=== PATIENT | female | born 1980 | race Caucasian/White ===

== ENCOUNTER 2018-09-27 06:03 | Inpatient (IN) | payer OTHER ==
[~2018-09-27] VITALS: Ht 157.5 cm; Wt 69.0 kg
[2018-09-27] VITALS (8 sets, daily range): BP systolic 114–142; BP diastolic 70–91
[~2018-09-27 06:03] MED LIST: IBUP200T45 PO; LIDOCAINE 1% MDV 20ML VIAL SQ PRN; LR 1,000 ML IV ONE; ORTH1TAB16 PO; WOME1TAB3 PO
[2018-09-27 06:24] LABS: HEMATOCRIT 41.9 % (36.0-47.0)
[2018-09-27 06:39] LABS: HCG, SERUM QUALITATIVE NEGATIVE (NEGATIVE)
[2018-09-27] MEDS ORDERED: BUPIVACAINE HCL 0.25% 30 ML VIAL As Ordered ONE (07:11)
[2018-09-27] MEDS ORDERED: ROCURONIUM BROMIDE 50 MG/5 ML VIAL As Ordered ONE (07:49)
[2018-09-27] MEDS ORDERED: NEOSTIGMINE 10 MG/10 ML VIAL (J2710) As Ordered ONE (07:49)
[2018-09-27] MEDS ORDERED: PHENYLephrine HCL 500 MCG/5 ML (100MCG/ML) SYRINGE (J2370) As Ordered ONE (07:49)
[2018-09-27] MEDS ORDERED: ONDANSETRON 4MG/2ML VIAL (J2405) As Ordered ONE (07:49)
[2018-09-27] MEDS ORDERED: GLYCOPYRROLATE INJ 0.2 MG/ML 2 ML VIAL As Ordered ONE (07:49)
[2018-09-27] MEDS ORDERED: dexameTHASONE 4 MG/ML 1ML VIAL (J1100) As Ordered ONE (07:49)
[2018-09-27] MEDS ORDERED: MIDAZOLAM INJ 2 MG/2 ML VIAL (J2250) As Ordered ONE (07:49)
[2018-09-27] MEDS ORDERED: PROPOFOL 200 MG/20 ML VIAL As Ordered ONE (07:49)
[2018-09-27] MEDS ORDERED: METOCLOPRAMIDE INJ 10MG/2ML VIAL (J2765) As Ordered ONE (07:49)
[2018-09-27] MEDS ORDERED: LIDOCAINE 2% INJ 100 MG/5 ML SDV (FOR ANES.) As Ordered ONE (07:49)
[2018-09-27] MEDS ORDERED: KETOROLAC 60 MG/2 ML VIAL (J1885) As Ordered ONE (07:49)
[2018-09-27] MEDS ORDERED: fentaNYL 250 MCG/5 ML INJECTION (J3010) As Ordered ONE (07:49)
[2018-09-27] MEDS ORDERED: HYDROmorphone HCL 2 MG/ML 1ML VIAL (J1170) As Ordered ONE (08:07)
[2018-09-27] MEDS ORDERED: FLUORESCEIN 10% (100MG/ML) 5 ML VIAL As Ordered ONE (09:52)
[2018-09-27] MEDS ORDERED: ONDANSETRON 4MG/2ML VIAL (J2405) IV PRN ×2 (10:30→11:00)
[2018-09-27] MEDS ORDERED: PERCOCET 5MG/325MG TAB PO PRN ×3 (10:30→11:00)
[2018-09-27] MEDS ORDERED: KETOROLAC 30 MG/ML VIAL (J1885) IV PRN (10:30)
[2018-09-27] MEDS ORDERED: HYDROMORPHONE HCL 0.5 MG/ 0.5 ML SYRINGE (J1170 PER 1) IV PRN (11:00)
[2018-09-27] MEDS ORDERED: LR 1,000 ML IV SCH (11:00)
[2018-09-27] MEDS ORDERED: fentaNYL 100 MCG/2 ML INJECTION (J3010) IV PRN (11:00)
[2018-09-27] MEDS: LR 1,000 ML IV SCH ×2 (11:40→17:54)
--- NOTE | 2018-09-27 16:53 | IPNPDOC ---
Text Note Date of Service The patient was seen on 09/27/18. NOTE POD 0 Nneka is a 38yo on POD 0 s/p uncomplicated LAVH, bilateral mariza pingectomy and cystoscopy performed for hx of AUB/HMB and dysmenorrhea. She reports pain is well controlled, only 3/10 and just "achy/crampy". She has tolerated clears, hasn't tried food yet. No n/v. Has been out of bed with no dizziness/lightheadedness. Miranda catheter in place draining clear orange-stained urine. No f/c/CP/SOB. Vitals wnl, afebrile General: WDWN, A&O, resting comfortably in bed Abdomen: soft, NTTP, no rebound/guarding, non-distended, 3 trocar sites intact with dermabond overlying and no erythema/induration Extremities: SCDs on and functioning Good urine output Labs: pre-op H/H 14/41.9 Assessment: Nneka is a 38yo doing well on POD 0 s/p uncomplicated LAVH, bilateral salpingectomy and cystoscopy performed for hx of AUB/HMB and dysmenorrhea. Vitals wnl, benign exam. Hemodynamically stable with no e/o infection. Plan: -routine post-op care -vitals q4hr -percocet and toradol for pain -regular diet -CBC in the morning -miranda catheter out tonight at 1800 with 6hr due to void -encourage ambulation and use of IS, SCDs on until fully ambulatory -possible discharge home tomorrow if meeting all milestones Dr. Keila Keith MD VS,Winnie, I+O VSWinnie I+O Laboratory Tests 09/27/18 06:18 Vital Signs Date Time Temp Pulse Resp B/P (MAP) Pulse Ox O2 Delivery O2 Flow Rate FiO2 09/27/18 16:35 98.8 113 16 131/87 (102) 98 09/27/18 10:55 2 Keila Keith MD Sep 27, 2018 16:53
--- NOTE | 2018-09-27 18:13 | RO ---
DATE OF PROCEDURE: 09/27/2018 PREOPERATIVE DIAGNOSIS: Abnormal uterine bleeding / heavy menstrual bleeding, and dysmenorrhea. POSTOPERATIVE DIAGNOSIS: Abnormal uterine bleeding / heavy menstrual bleeding, and dysmenorrhea. MATERIALS FORWARDED TO THE LAB: Uterus, cervix, and bilateral fallopian tubes. OPERATION PERFORMED: Laparoscopic-assisted vaginal hysterectomy with bilateral salpingectomy and cystoscopy. SURGEON: Dr. Keila Keith MD HOME DAY CARE PROVIDER: Dr. Husam Flannery DO Clinical service: Gynecology INFECTION CLASSIFICATION: II. ESTIMATED BLOOD LOSS: 100 mL URINE OUTPUT: 200 mL IV FLUIDS: 1800 mL of lactated Ringer's. INDICATIONS FOR OPERATION: Nneka is a 38-year-old G2, P 2-0-0-2 who has abnormal uterine bleeding / heavy menstrual bleeding and dysmenorrhea despite being on an oral contraceptive pill. We discussed management options and she elected for definitive management with hysterectomy. DESCRIPTION OF FINDINGS: Laparoscopic findings included a normal appearing uterus, fallopian tubes, ovaries, appendix, liver edge and gallbladder. Cystoscopy revealed bilateral efflux from the ureteral orifices as well as intact bladder dome. DESCRIPTION OF OPERATION: After obtaining informed consent. Nneka was taken to the operating room. General endotracheal anesthesia was established and she was placed in low lithotomy position. She was prepped and draped in usual sterile fashion. She was placed in Trendelenburg position. Hdz catheter was placed. Morley speculum was placed in the vagina and visualization of the cervix was obtained. Anterior lip of the cervix was grasped with a single-tooth tenaculum. The cervix was sequentially dilated using Hanks dilators uterus sounded to 8 cm. 0-Vicryl suture was used in a [id number] on the anterior lip of the cervix. And that suture was tied down to the VCare uterine manipulator that was placed through the cervix into the uterus. The balloon inflated in normal fashion. This was all done after the tenaculum was taken off of the cervix speculum was removed from the vagina. The patient received 2 grams of IV Ancef prophylactically before the procedure started. She was taken out of Trendelenburg position. The 5 mm incision was made in the infraumbilical fold beneath the subcutaneous tissue after anesthetizing with 0.25% Marcaine. Lexis clamp was used to spread the subcutaneous tissue. Lower abdominal wall was manually grabbed and lifted up and OptiVu trocar was placed at the 90 degrees angle laparoscope was advanced through the port and intra-abdominal placement was confirmed. There was no injury noted below the point of entry. Continuous low carbon dioxide began to establish pneumoperitoneum at 15 mmHg pressure. We then began our pelvic and abdominal survey. We noticed a normal appearing liver edge and gallbladder as well as the appendix which is somewhat tacked down with normal tissue on the right side of the pelvis but was very normal in appearance. The uterus, fallopian tubes, round ligaments, ovaries, posterior cul-de-sac ovarian fossa anterior cul-de-sac, they were all normal in appearance. There were no endometriosis lesions. There were no adhesions whatsoever and at that point we placed two other ports first anesthetizing the 0.25% Marcaine, but in the right lower quadrant left lower quadrant we placed 5 mm trocars under direct visualization without incident. At that point we began to remove the fallopian tubes using the LigaSure. The right fallopian tube was lifted up with a blunt grasper and the LigaSure was used to excise the fallopian tubes just underneath the fallopian tubes maintaining good distance between the ovary and tube. Excising all the way down to the cornu of the uterus and that was removed up through the abdominal ports taken off to the side to be sent to pathology as specimen. Next the left fallopian tube had the exact same procedure repeated and also was taken off the field as specimen. We then began on the right side using the LigaSure device to transect the right round ligament. And then going down the broad ligament towards the bladder making a bladder flap with the LigaSure. We noticed on both sides excellent vermiculation of the ureters prior to beginning all of this and then the utero-ovarian ligament was transected on the right side using the LigaSure. We attempted to skeletonize the uterine arteries after opening the anterior leaf of the broad ligament on the right side and we used cautery all the way down to the colpotomy ring and then we repeated this exactly procedure on the left side using the LigaSure. We conjoined the left side portion of the bladder flap with the right and noted hemostasis all the way down. We then began our colpotomy using a laparoscopic l hook with cautery. We were able to do the anterior portion of the colpotomy but when we came around with a right-sided colpotomy to the posterior portion we lost pneumoperitoneum and despite various attempts at placing a wet lap sponge within a glove in the vagina to manipulate various ways we still were unable to get sufficient pneumoperitoneum replaced so that we felt safe finishing the posterior portion the colpotomy so we made the decision to perform the rest of the colpotomy from below. So at that point all the instruments were removed from the abdomen but the ports were left in place and then we placed the patient in high lithotomy position. The pneumoperitoneum was completely released. A short weighted speculum was placed in the vagina with good visualization of the cervix after removing the VCare uterine manipulator cervix was grasped with two Allis clamps and then Bovie cautery was used to finish the colpotomy from below which was very simple. At that point the vaginal cuff was closed using 0 Vicryl running suture with uterosacral plication. The vagina was copiously irrigated and hemostasis was noted. All instruments were removed from the vagina. We then returned our attention to the abdomen and replaced the pneumoperitoneum. We irrigated the pelvis and noticed a very small area of oozing along the vaginal cuff area. The anterior peritoneum and the LigaSure was used to very gently provide cautery to stop that oozing. At that point we then irrigated again. Noticed complete hemostasis and placed Eileen along the vaginal cuff as well as the pedicles and noted complete hemostasis at that point. We then again removed released the pneumoperitoneum and returned our attention below where a cystoscopy was completed in usual fashion. The patient was given fluorescein by the anesthesia provider and we were able to note robust bilateral ureteral jets. There was a bubble at the dome of the bladder and thorough inspection of the entire bladder revealed no sutures present. No defects. Cystoscope was removed and urethra and the Hdz catheter was replaced back in the bladder. At that point we paid attention back to the abdomen where we closed the port sites with 4-0 Monocryl and Dermabond. Hemostasis was noted for all incisions. The patient was taken out of lithotomy position. All counts were correct times two. The patient was awakened from general anesthesia and taken to the recovery room in stable condition. SHAHRZAD
[2018-09-27] MEDS: DOCUSATE SODIUM 100 MG CAP PO SCH (21:19)
[2018-09-28] VITALS: BP 116/74
[2018-09-28] MEDS: LR 1,000 ML IV SCH ×2 (02:29→08:56)
[2018-09-28 04:00] VITALS: BP 111/71
[2018-09-28 07:15] LABS: BASO % 0.2 % (0.0-1.0); EOS # 0.1 10^3/uL (0.0-0.50); HEMATOCRIT 34.4 % (36.0-47.0); HEMOGLOBIN 11.5 g/dl (12.0-15.5); LYMPH # 3.4 10^3/uL (1.5-4.5); LYMPH % 23.5 % (24.0-44.0); MEAN CORPUSCULAR HEMOGLOBIN 29.3 pg (27.0-33.0); MEAN CORPUSCULAR HGB CONC 33.4 g/dl (32.0-36.5); MEAN CORPUSCULAR VOLUME 87.8 fl (80.0-96.0); MONO % 7.1 % (0.0-5.0); NEUTROPHILS # 9.7 10^3/uL (1.8-7.7); NEUTROPHILS % 67.2 % (36.0-66.0); PLATELET COUNT, AUTOMATED 272 10^3/uL (150-450); RED BLOOD COUNT 3.92 10^6/uL (4.00-5.40); WHITE BLOOD COUNT 14.5 10^3/uL (4.0-10.0)
[2018-09-28 09:00] VITALS: BP 135/82
[2018-09-28] MEDS: DOCUSATE SODIUM 100 MG CAP PO SCH (09:32)
--- NOTE | 2018-09-28 09:41 | IPNPDOC ---
Text Note Date of Service The patient was seen on 09/28/18. NOTE POD 1 Nneka is a 38yo on POD 1 s/p uncomplicated LAVH, bilateral mariza pingectomy and cystoscopy performed for hx of AUB/HMB and dysmenorrhea. She reports pain is very well controlled. Had chinese toast this morning, but taking it slow because had slight nausea- no vomiting. Has been ambulating with no dizziness/lightheadedness. Hdz catheter removed last night and has been voiding spontaneously since then without issue. Had some scant vaginal spotting when wiped after urinating. Has been passing flatus. No f/c/CP/SOB. Vitals wnl, afebrile General: WDWN, A&O, resting comfortably in bed Abdomen: soft, appropriately TTP, no rebound/guarding, 3 trocar sites intact with dermabond overlying and no erythema/induration Extremities: no pain with palpation of calves Labs: pre-op H/H 14/41.9 post-op H/H 11.5/34.4 Assessment: Nneka is a 38yo doing well on POD 1 s/p uncomplicated LAVH, bilateral salpingectomy and cystoscopy performed for hx of AUB/HMB and dysmenorrhea. Vitals wnl, benign exam. Hemodynamically stable with no e/o infection. Plan: -safe for discharge home -has home meds: percocet and motrin prn pain, colace for bowel regimen -regular diet, encouraged hydration -no heavy lifting or intercourse -discussed return precautions: fevers/chills, increasing abdominal pain, foul smelling vaginal discharge or heavy bleeding, signs of infection of abdominal incisions such as redness/pus, inability to tolerate PO -has follow-up appt with me in clinic in 2 weeks scheduled MD BARBARA Suarez Fishbone I+O Winnie JIMENEZ I+O Laboratory Tests 09/28/18 06:53 Red Blood Count 3.92 L, Mean Corpuscular Volume 87.8, Mean Corpuscular Hemoglobin 29.3, Mean Corpuscular Hemoglobin Concent 33.4, Red Cell Distribution Width 12.5, Neutrophils (%) (Auto) 67.2 H, Lymphocytes (%) (Auto) 23.5 L, Monocytes (%) (Auto) 7.1 H, Eosinophils (%) (Auto) 1.0, Basophils (%) (Auto) 0.2, Neutrophils # (Auto) 9.7 H, Lymphocytes # (Auto) 3.4, Monocytes # (Auto) 1.0 H, Eosinophils # (Auto) 0.1, Basophils # (Auto) 0.0 Vital Signs Date Time Temp Pulse Resp B/P (MAP) Pulse Ox O2 Delivery O2 Flow Rate FiO2 09/28/18 06:00 18 09/28/18 04:00 98.4 98 111/71 (84) 100 09/27/18 10:55 2 I&O- Last 24 Hours up to 6 AM 09/28/18 05:59 Intake Total 2530 ml Output Total 1525 ml Balance 1005 ml Keila Keith MD Sep 28, 2018 09:41
--- NOTE | 2018-09-28 09:45 | DS.PDOC ---
Discharge Summary General Date of Admission Sep 27, 2018 at 06:03 Date of Discharge Sep 28, 2018 Attending Physician: Keila Keith MD Discharge Summary PROCEDURES PERFORMED DURING STAY: LAVH, bilateral salpingectomy, cystoscopy ADMITTING DIAGNOSES: 1. AUB/HMB, dysmenorrhea DISCHARGE DIAGNOSES: 1. AUB/HMB, dysmenorrhea COMPLICATIONS/CHIEF COMPLAINT: Abnormal/Heavy Uterine Bleeding, Dysmenorrhea. HISTORY OF PRESENT ILLNESS/HOSPITAL COURSE: Nneka is a 38yo doing well on POD 1 s/p uncomplicated LAVH, bilateral salpingectomy and cystoscopy performed for hx of AUB/HMB and dysmenorrhea. She had a benign post-operative course and at time of discharge, vitals were wnl and she had a benign exam. She was hemodynamically stable with no e/o infection. DISCHARGE MEDICATIONS: Please see below. ALLERGIES: Please see below. PHYSICAL EXAMINATION ON DISCHARGE: Vitals wnl, afebrile General: WDWN, A&O, resting comfortably in bed Abdomen: soft, appropriately TTP, no rebound/guarding, 3 trocar sites intact with dermabond overlying and no erythema/induration Extremities: no pain with palpation of calves LABORATORY DATA: pre-op H/H 14/41.9 post-op H/H 11.5/34.4 DIET: regular DISPOSITION: Home DISCHARGE Plan/INSTRUCTIONS: -safe for discharge home -has home meds: percocet and motrin prn pain, colace for bowel regimen -regular diet, encouraged hydration -no heavy lifting or intercourse -discussed return precautions: fevers/chills, increasing abdominal pain, foul smelling vaginal discharge or heavy bleeding, signs of infection of abdominal incisions such as redness/pus, inability to tolerate PO -has follow-up appt with me in clinic in 2 weeks scheduled DISCHARGE CONDITION: Stable TIME SPENT ON DISCHARGE: Greater than [address] Keila Keith MD Vital Signs/I&Os Vital Signs Date Time Temp Pulse Resp B/P (MAP) Pulse Ox O2 Delivery O2 Flow Rate FiO2 09/28/18 06:00 18 09/28/18 04:00 98.4 98 111/71 (84) 100 09/27/18 10:55 2 I&O- Last 24 Hours up to 6 AM 09/28/18 05:59 Intake Total 2530 ml Output Total 1525 ml Balance 1005 ml Laboratory Data Labs 24H Laboratory Tests 2 09/28/18 06:53: Immature Granulocyte % (Auto) 1.0, White Blood Count 14.5H, Red Blood Count 3.92L, Hemoglobin 11.5#L, Hematocrit 34.4L, Mean Corpuscular Volume 87.8, Mean Corpuscular Hemoglobin 29.3, Mean Corpuscular Hemoglobin Concent 33.4, Red Cell Distribution Width 12.5, Platelet Count 272, Neutrophils (%) (Auto) 67.2H, Lymphocytes (%) (Auto) 23.5L, Monocytes (%) (Auto) 7.1H, Eosinophils (%) (Auto) 1.0, Basophils (%) (Auto) 0.2, Neutrophils # (Auto) 9.7H, Lymphocytes # (Auto) 3.4, Monocytes # (Auto) 1.0H, Eosinophils # (Auto) 0.1, Basophils # (Auto) 0.0, Nucleated Red Blood Cells % (auto) 0.0 CBC/BMP Laboratory Tests 09/28/18 06:53 Red Blood Count 3.92 L, Mean Corpuscular Volume 87.8, Mean Corpuscular Hemoglobin 29.3, Mean Corpuscular Hemoglobin Concent 33.4, Red Cell Distribution Width 12.5, Neutrophils (%) (Auto) 67.2 H, Lymphocytes (%) (Auto) 23.5 L, Monocytes (%) (Auto) 7.1 H, Eosinophils (%) (Auto) 1.0, Basophils (%) (Auto) 0.2, Neutrophils # (Auto) 9.7 H, Lymphocytes # (Auto) 3.4, Monocytes # (Auto) 1.0 H, Eosinophils # (Auto) 0.1, Basophils # (Auto) 0.0 Discharge Medications Scheduled (Womens Multivitamin) 1 Tab Tab, 1 TAB PO DAILY, (Reported) (Ortho Tri-Cyclen 0.18/0.215/0.25 mg-35 Mcg) 1 Tab Tab, 1 TAB PO DAILY, (Reported) Scheduled PRN Ibuprofen (Ibu-200) 200 Mg Tab, 200 MG PO Q4HP PRN for PAIN, (Reported) Allergies Coded Allergies: HEATHER (Verified Allergy, Intermediate, face swelling, 09/26/18) Keila Keith MD Sep 28, 2018 09:45
[2018-09-28] MEDS ORDERED: PERC5TAB12 PO (10:01)
[2018-09-28] MEDS ORDERED: COLA100C5 PO (10:01)
== END 2018-09-28 11:30 | disposition home or self-care (01) | DRG 743 ==
LOC: M OR 06:03 → M PED 11:38
PROVIDERS: ADMIT Obstetrics & Gynecology; ATTEND Obstetrics & Gynecology
PROC: 0UT78ZZ Resection of Bilateral Fallopian Tubes, Via Natural or Artificial Opening Endoscopic (ICD-10-PCS; 2018-09-27)
PROC: 0UT98ZZ Resection of Uterus, Via Natural or Artificial Opening Endoscopic (ICD-10-PCS; principal; 2018-09-27 07:30)
PROC: 0UTC8ZZ Resection of Cervix, Via Natural or Artificial Opening Endoscopic (ICD-10-PCS; 2018-09-27 07:30)
DX: N94.6 Dysmenorrhea, unspecified (principal); Z91.018 Allergy to other foods

== ENCOUNTER → 2021-11-03 | Outpatient (CLI) | payer OTHER ==
[~2021-11-03] MED LIST changes: +COLA100C5 PO; -IBUP200T45 PO; +IBUP200T46 PO; -LIDOCAINE 1% MDV 20ML VIAL SQ PRN; -LR 1,000 ML IV ONE; -ORTH1TAB16 PO; +ORTH1TAB8 PO; +PERC5TAB12 PO
== END ==
LOC: M WHC 09:15
PROVIDERS: ATTEND Nurse Practitioner Primary Care
DX: Z12.31 Encounter for screening mammogram for malignant neoplasm of breast (principal)

== ENCOUNTER → 2022-12-24 | Outpatient (CLI) | payer OTHER | LOC: M WHC 13:12 | PROVIDERS: ATTEND Nurse Practitioner Primary Care | DX: Z12.39 Encounter for other screening for malignant neoplasm of breast (principal) ==

== ENCOUNTER → 2023-01-21 | Outpatient (CLI) | payer OTHER | LOC: M WHC 08:07 | PROVIDERS: ATTEND Internal Medicine | DX: Z12.31 Encounter for screening mammogram for malignant neoplasm of breast (principal) ==

== ENCOUNTER → 2023-08-05 | Outpatient (CLI) | payer OTHER | LOC: M WHC 08:33 | PROVIDERS: ATTEND Nurse Practitioner Primary Care | DX: R92.8 Other abnormal and inconclusive findings on diagnostic imaging of breast (principal) | CPT/HCPCS: 76642; 77065; G0279 ==

== ENCOUNTER → 2024-03-23 | Outpatient (CLI) | payer OTHER | LOC: M WHC 03-14 07:43 | PROVIDERS: ATTEND Nurse Practitioner Primary Care | DX: R92.8 Other abnormal and inconclusive findings on diagnostic imaging of breast (principal) ==

== ENCOUNTER 2025-03-13 03:58 | Inpatient (IN) | payer OTHER ==
[~2025-03-13] VITALS: Ht 157.5 cm; Wt 67.7 kg
[2025-03-13] VITALS (7 sets, daily range): BP systolic 130–159; BP diastolic 68–85; TEMP 98.5–99.6; O2SAT 97–100
[2025-03-13 05:03] LABS: BASO # 0.1 10^3/uL (0.0-0.2); BASO % 0.3 % (0.0-1.0); EOS # 0.0 10^3/uL (0.0-0.5); EOS % 0.1 % (0.0-3.0); LYMPH # 1.2 10^3/uL (1.5-5.0); LYMPH % 6.7 % (24.0-44.0); MONO # 0.3 10^3/uL (0.0-0.8); MONO % 1.5 % (2.0-8.0); NEUTROPHILS # 16.1 10^3/uL (1.5-8.5); NEUTROPHILS % 91.0 % (36.0-66.0); PLATELET COUNT, AUTOMATED 317 10^3/uL (150-450)
[2025-03-13 05:11] LABS: APPEARANCE, URINE CLEAR (CLEAR); BACTERIA, URINE AUTO NEGATIVE (NEGATIVE); BILIRUBIN, URINE AUTO NEGATIVE (NEGATIVE); BLOOD, URINE BLOOD NEGATIVE (NEGATIVE); GLUCOSE, URINE (UA) AUTO NEGATIVE (NEGATIVE); KETONE, URINE AUTO 1+ mg/dL (NEGATIVE); LEUKOCYTE ESTERASE, URINE AUTO NEGATIVE (NEGATIVE); MUCUS, URINE SMALL (NEGATIVE); NITRITE, URINE AUTO NEGATIVE (NEGATIVE); PROTEIN, URINE AUTO 2+ mg/dL (NEGATIVE); RBC, URINE AUTO 9 /HPF (0-3); SPECIFIC GRAVITY URINE AUTO 1.018 (1.002-1.035); SQUAMOUS EPITHELIAL CELL UR AU 1 /HPF (0-6); UROBILINOGEN, URINE AUTO 0.2 mg/dL (0.0-2.0); WBC, URINE AUTO 0 /HPF (0-3)
[2025-03-13 05:22] LABS: ALT/SGPT 16 U/L (7.0-40); AST/SGOT 21 U/L (<34); CALCIUM LEVEL 8.8 MG/DL (8.5-10.1); CARBON DIOXIDE LEVEL 24 MMOL/L (20-31); CHLORIDE LEVEL 102 MMOL/L (98-107); CREATININE FOR GFR 0.62 MG/DL (0.55-1.30); GLOMERULAR FILTRATION RATE > 90.0 (>58); POTASSIUM SERUM 3.6 MMOL/L (3.5-5.1); SODIUM LEVEL 136 MMOL/L (136-145)
[2025-03-13] MEDS ORDERED: MORPHINE 4 MG/ML 1 ML VIAL IV ONE (06:25)
[2025-03-13] MEDS: ONDANSETRON 4MG 2ML VIAL IV ONE ×2 (06:31→09:15)
[2025-03-13] MEDS: NS (Normal Saline) 0.9% 1,000 ML IV ONE (06:31)
[2025-03-13] MEDS: KETOROLAC 30 MG/ML 1 ML VIAL IV ONE (06:32)
[2025-03-13] MEDS ORDERED: ISOVUE-370 76% 100 ML VIAL As Ordered ONE (07:26)
[2025-03-13] MEDS: PIPERACILLIN/TAZOBACTAM SOD 3.375 GM in DEXTROSE 5% (D5W) ADV/MINI-BAG 50 ML IV ONE (09:15)
[2025-03-13] MEDS ORDERED: HOME MED LIST COMPLETE! XX SCH (11:30)
[2025-03-13] MEDS ORDERED: MORPHINE 4 MG/ML 1 ML VIAL IV PRN (11:35)
[2025-03-13] MEDS ORDERED: ONDANSETRON 4MG 2ML VIAL IV PRN ×2 (11:35→18:10)
[2025-03-13] MEDS: NS (Normal Saline) 0.9% 1,000 ML IV SCH (12:27)
[2025-03-13] MEDS: PIPERACILLIN/TAZOBACTAM SOD 3.375 GM in DEXTROSE 5% (D5W) ADV/MINI-BAG 50 ML IV SCH (15:45)
[2025-03-13] MEDS: KETOROLAC 30 MG/ML 1 ML VIAL IV PRN (15:45)
[2025-03-13] MEDS ORDERED: ROCURONIUM BROMIDE 50MG/5ML VIAL As Ordered ONE (16:24)
[2025-03-13] MEDS ORDERED: LIDOCAINE 2% 100 MG/5 ML SDV (FOR ANES.) As Ordered ONE (16:24)
[2025-03-13] MEDS ORDERED: MIDAZOLAM INJ 2 MG/2 ML VIAL As Ordered ONE (16:24)
[2025-03-13] MEDS ORDERED: INDOCYANINE GREEN 25 MG VIAL As Ordered ONE (16:28)
[2025-03-13] MEDS ORDERED: ONDANSETRON 4MG 2ML VIAL As Ordered ONE (16:58)
[2025-03-13] MEDS ORDERED: dexAMETHasone 4 MG/ML 1 ML VIAL As Ordered ONE (16:58)
[2025-03-13] MEDS ORDERED: ACETAMINOPHEN 1000MG/100ML IV BAG As Ordered ONE (16:59)
[2025-03-13] MEDS ORDERED: SUGAMMADEX SODIUM 200 MG/2 ML VIAL As Ordered ONE (17:10)
[2025-03-13] MEDS ORDERED: KETOROLAC 30 MG/ML 1 ML VIAL As Ordered ONE (17:10)
[2025-03-13] MEDS ORDERED: HYDROMORPHONE HCL 0.5 MG/0.5 ML SYRINGE IV PRN (18:10)
[2025-03-13] MEDS ORDERED: MEPERIDINE 25 MG/ML 1 ML VIAL IV PRN (18:10)
[2025-03-14] VITALS: BP 125/72; TEMP 98.8; O2SAT 98
[2025-03-14 04:00] VITALS: BP 137/70; TEMP 98.7; O2SAT 98
[2025-03-14 08:59] VITALS: BP 124/71; TEMP 98.3; O2SAT 99
[2025-03-14 09:14] LABS: PLATELET COUNT, AUTOMATED 262 10^3/uL (150-450)
[2025-03-14 09:35] LABS: ALT/SGPT 11 U/L (7.0-40); AST/SGOT 17 U/L (<34); CALCIUM LEVEL 7.2 MG/DL (8.5-10.1); CARBON DIOXIDE LEVEL 24 MMOL/L (20-31); CHLORIDE LEVEL 108 MMOL/L (98-107); CREATININE FOR GFR 0.73 MG/DL (0.55-1.30); GLOMERULAR FILTRATION RATE > 90.0 (>58); POTASSIUM SERUM 3.3 MMOL/L (3.5-5.1); SODIUM LEVEL 138 MMOL/L (136-145)
[2025-03-14] MEDS: FLUZONE VACCINE TRIVALENT PF(25-26) 0.5ML SYRINGE IM.IMMUN ONE (09:45)
[2025-03-14 12:10] VITALS: BP 135/73; TEMP 97.8; O2SAT 98
[2025-03-14] MEDS ORDERED: IBUP600T42 PO (12:44)
[2025-03-14] MEDS ORDERED: ACET-897 PO (12:44)
[2025-03-14] MEDS: POTASSIUM CHLORIDE 10MEQ SR TABLET PO ONE (13:11)
== END 2025-03-14 14:45 | disposition home or self-care (01) | DRG 419 ==
LOC: M ED 03:58 → M ED INP 11:31 → M PED 13:05
PROVIDERS: ADMIT Internal Medicine Nephrology; ATTEND Internal Medicine Nephrology
PROC: 8E0W4CZ Robotic Assisted Procedure of Trunk Region, Percutaneous Endoscopic Approach (ICD-10-PCS; 2025-03-13)
PROC: 0FT44ZZ Resection of Gallbladder, Percutaneous Endoscopic Approach (ICD-10-PCS; principal; 2025-03-13 17:00)
DX: K80.00 Calculus of gallbladder with acute cholecystitis without obstruction (principal); Z91.018 Allergy to other foods